=== PATIENT | male | born 1975 | race African-American/Black ===

== ENCOUNTER 2018-03-09 02:04 | Emergency (ER) | payer SELFPAY ==
[~2018-03-09] VITALS: Ht 177.8 cm; Wt 81.6 kg
[2018-03-09 02:14] VITALS: BP 157/82
== END 2018-03-09 03:31 | disposition home or self-care (01) ==
LOC: ER 02:07
DX: H10.9 Unspecified conjunctivitis (principal); J06.9 Acute upper respiratory infection, unspecified; F17.200 Nicotine dependence, unspecified, uncomplicated; Z60.2 Problems related to living alone
CPT/HCPCS: 86403-TC; 87070-TC; A4606; Z7610